=== PATIENT | female | born 1955 | race Caucasian/White ===

== ENCOUNTER 2021-11-23 16:57 | Emergency (ER) | payer SELFPAY ==
[~2021-11-23] VITALS: Ht 152.4 cm; Wt 59.0 kg
[2021-11-23 17:00] VITALS: BP_SYST 153
[2021-11-23 17:35] VITALS: BP_SYST 153
--- NOTE | 2021-11-23 17:35 | NUR ---
Patient given written and verbal discharge instructions and verbalizes understanding. ZULMA owens MD discussed with patient the results and treatment provided. Patient in stable condition. ID arm band removed. . Patient educated on pain management and to follow up with PMD. Pain Scale 0. Opportunity for questions provided and answered. Medication side effect fact sheet provided.
== END 2021-11-23 17:35 ==
LOC: SED 16:57
DX: M25.512 Pain in left shoulder (principal); I10 Essential (primary) hypertension; E11.9 Type 2 diabetes mellitus without complications
CPT/HCPCS: 82962; 99283